=== PATIENT | female | born 1955 | race African-American/Black ===

== ENCOUNTER 2025-02-24 16:30 | Emergency (ER) | payer MEDICARE, OTHER ==
[~2025-02-24] VITALS: Ht 167.6 cm; Wt 90.0 kg
[2025-02-24 16:33] VITALS: O2SAT 98
[2025-02-24] MEDS: ACETAMINOPHEN 325MG TABLET PO ONE (17:26)
[2025-02-24] MEDS: SODIUM CHLORIDE 0.9% 1,000 ML IV ONE (17:27)
[2025-02-24 18:15] LABS: BASOPHILS % 0.5 % (0.0-2.0); EOSINOPHILS % 2.1 % (0.0-5.0); HEMATOCRIT. 35.4 % (36.0-48.0); HEMOGLOBIN. 12.1 g/dL (12.0-16.0); LYMPHOCYTES % 26.6 % (20.0-50.0); MEAN PLATELET VOLUME 8.0 fl (7.4-10.4); MONOCYTES % 14.2 % (2.0-8.0); NEUTROPHILS % 56.6 % (40.0-76.0); PLATELET 295 x1000/uL (130-400); RED BLOOD CELL COUNT 3.77 mill/uL (4.2-5.4); RED CELL DISTRIBUTION WIDTH 12.7 % (11.6-14.6)
[2025-02-24 18:28] LABS: INR 1.0
[2025-02-24 18:30] LABS: CREATININE 1.0 mg/dL (0.6-1.0)
[2025-02-24 18:31] LABS: PROTEIN TOTAL 6.8 g/dL (6.0-8.3); TROPONIN I HIGH SENSITIVITY 6 ng/L (3.0-34); UREA NITROGEN BLOOD 26 mg/dL (9-23)
[2025-02-24 18:32] LABS: ASPARTATE AMINOTRANSFERASE 17 IU/L (<34)
[2025-02-24 18:33] LABS: BILIRUBIN DIRECT 0.2 mg/dL (<=3.0); BILIRUBIN TOTAL 0.5 mg/dL (0.1-1.0)
[2025-02-24] MEDS ORDERED: METO-385 MT (18:40)
[2025-02-24] MEDS ORDERED: ATOR20TA65 MT (18:40)
[2025-02-24] MEDS ORDERED: TRAZ-251 MT (18:40)
[2025-02-24 20:08] VITALS: BP 154/79; PULSE 85; RESP 20; TEMP 36.7; O2SAT 98
== END 2025-02-24 20:10 | disposition home or self-care (01) ==
LOC: ER 16:30
DX: E86.0 Dehydration (principal); E78.00 Pure hypercholesterolemia, unspecified; F20.9 Schizophrenia, unspecified; F31.9 Bipolar disorder, unspecified; I10 Essential (primary) hypertension; R06.02 Shortness of breath; I25.2 Old myocardial infarction; I67.82 Cerebral ischemia; Z76.0 Encounter for issue of repeat prescription; Z79.899 Other long term (current) drug therapy; Z86.73 Personal history of transient ischemic attack (TIA), and cerebral infarction without residual deficits
CPT/HCPCS: 99285; 96360; 70450; 71045; 80076; 80048; 83880; 85025; 85610; 84484; 36415; 93005; J7030; A4606